=== PATIENT | female | born 1965 | race Two or more races ===

== ENCOUNTER 2018-07-23 10:24 | Outpatient (CLI) | payer OTHER | END 2018-07-23 10:35 | disposition home or self-care (01) | LOC: RAD 501 10:24 | DX: R05 Cough (principal); M54.5 Low back pain ==

== ENCOUNTER 2019-02-03 13:38 | Outpatient (CLI) | payer OTHER | END 2019-02-03 15:22 | disposition home or self-care (01) | LOC: MAMO-SONO 13:38 | DX: Z12.31 Encounter for screening mammogram for malignant neoplasm of breast (principal); Z87.898 Personal history of other specified conditions; N60.21 Fibroadenosis of right breast; N60.22 Fibroadenosis of left breast ==

== ENCOUNTER 2019-08-15 13:24 | Emergency (ER) | payer OTHER ==
[~2019-08-15] VITALS: Ht 170.2 cm; Wt 63.0 kg
[2019-08-15] MEDS ORDERED: WELLBUTRIN XL300 MG (13:35)
== END 2019-08-15 20:27 | disposition home or self-care (01) ==
LOC: ER 13:24
DX: K58.8 Other irritable bowel syndrome (principal)

== ENCOUNTER 2019-12-01 12:14 | Outpatient (CLI) | payer OTHER ==
[~2019-12-01 12:14] MED LIST: WELLBUTRIN XL300 MG
== END 2019-12-01 12:17 | disposition home or self-care (01) ==
LOC: RAD 12:14
DX: M94.28 Chondromalacia, other site (principal)